=== PATIENT | male | born 1975 | race Caucasian/White ===

== ENCOUNTER 2019-01-08 18:38 | Inpatient (IN) | payer BC ==
[2019-01-08] MEDS ORDERED: Sodium Chloride 0.9% 10 ML Syringe FLUSH PRN (18:44)
[2019-01-08] MEDS: Acetaminophen/HYDROcodone 325-5 MG Tab PO PRN (19:58)
[2019-01-08] MEDS: Sodium Chloride 0.9% 1,000 ML IV SCH (20:37)
[2019-01-08] MEDS: Piperacillin/Tazobactam 4.5 GM in Sodium Chloride 0.9% 100 ML IV SCH (20:38)
[2019-01-08] MEDS ORDERED: FLUOCINOLONE ACETONIDE TOP PRN (21:40)
[2019-01-09] MEDS: Piperacillin/Tazobactam 4.5 GM in Sodium Chloride 0.9% 100 ML IV SCH ×4 (02:01→20:09)
[2019-01-09] MEDS: LORazepam 0.5 MG Tab PO PRN ×2 (02:07→21:39)
[2019-01-09] MEDS: Acetaminophen/HYDROcodone 325-5 MG Tab PO PRN ×3 (02:08→20:07)
[2019-01-09] MEDS: Lisinopril 10 MG Tab PO SCH (09:32)
[2019-01-09] MEDS: Simvastatin 10 MG Tab PO SCH (09:33)
[2019-01-09] MEDS: Apremilast [Otezla] 30 MG PO SCH ×2 (09:47→20:25)
[2019-01-09] MEDS: Acetaminophen 325 MG Tab PO PRN ×3 (10:50→21:39)
--- NOTE | 2019-01-09 11:30 | PN ---
01/09/2019 PATIENT NAME: LEIGH MENDOZA CHIEF COMPLAINT: Abscess to his left axillary area. HISTORY: (See HPI for full details), however, I had seen Leigh. He is a 43- year-old gentleman. I had seen him in the [facility] yesterday when he had come in for an abscess on his left axillary area the past few days. At that time, he stated it was draining, it was tender and red and swollen. He has a history of periodic abscesses even to his abdomen area. He also had a history of approximately two weeks ago of an abscess of his left axillary proximal to his current one that seemed to come to the surface and drained with warm compresses. He has a history of abscesses, which he will put warm compresses on. He also complained of a fever of 103 two days ago with generalized chills, diaphoresis with more erratic blood sugars. He is a type 1 diabetic. He was not evaluated prior to coming to the clinic yesterday. He came in yesterday with significant diaphoresis. He was admitted for IV antibiotics and close followup. LABS: At the [facility], white count 10.9, hemoglobin and hematocrit normal. Mild elevation in absolute segmental neutrophils. Glucose 290. Sodium 134, potassium normal at 4.8. ESR normal at 11. Influenza A, B, and strep was negative. Lactic acid normal. He was tachycardic. Yesterday he was afebrile, however, he had been taking ibuprofen and Tylenol. Dr. Jefferson attempted to drain the abscess, however, received no drainage. Again he was admitted for IV antibiotics. OVERNIGHT CONCERNS: I did order pain medication hydrocodone, the patient took low-dose, tolerated that well. He does have significant anxiety, gave him oral benzodiazepine. This seemed to work well. PHYSICAL EXAMINATION: VITAL SIGNS: Temperature 98.9, heart rate 104, blood pressure 143/87, respiratory rate 20, and O2 sats 98% on room air. LUNGS: Are clear to auscultation. CV: Regular rate and rhythm. PSYCHIATRIC: High anxiety level, however, appears more calm this morning. LEFT AXILLARY: Diffuse, tender, erythematous hard indurated abscess, appears to be draining. Culture will be taken. Not much improvement from yesterday on exam. IMPRESSION AND PLAN: 1. Abscess, left axillary. Started on broad-spectrum Zosyn along with vancomycin. Pharmacy did trough for this. Blood cultures are drawn. 2. Dehydration. Continue with IV hydration and oral. 3. Chronic problems, type 1 diabetes, appears well controlled. Carbohydrate counting with insulin pump. The patient self doses, this will be monitored 3 to 4 times a day. 4. Hyperlipidemia. He is on simvastatin. 5. Hypertension. He is on DAVID inhibition. Blood pressure is slightly high today, however, review of clinical charts, he has been quite stable for this. It could be pain induced. We will monitor for the need to increase. OVERALL PLAN: Continue IV antibiotics. We will see how his abscess will declare itself. Culture today. Monitor blood cultures. Blood sugars are good. We will demarcate the lines with a marker today to assess for receding redness. Hold off on any formal imaging today. /[id number]/MODL
[2019-01-09] MEDS: Sodium Chloride 0.9% 1,000 ML IV SCH (12:30)
[2019-01-09] MEDS: Naloxegol Oxalate 25 MG Tab PO SCH (12:30)
[2019-01-10] MEDS: Piperacillin/Tazobactam 4.5 GM in Sodium Chloride 0.9% 100 ML IV SCH ×2 (01:57→08:20)
[2019-01-10] MEDS: Sodium Chloride 0.9% 1,000 ML IV SCH (03:58)
[2019-01-10] MEDS ORDERED: Ondansetron 4 MG/2 ML SDV IVPUSH PRN (07:44)
[2019-01-10] MEDS: Simvastatin 10 MG Tab PO SCH (08:21)
[2019-01-10] MEDS: Naloxegol Oxalate 25 MG Tab PO SCH (08:21)
[2019-01-10] MEDS: Lisinopril 10 MG Tab PO SCH (08:22)
[2019-01-10] MEDS: Apremilast [Otezla] 30 MG PO SCH ×2 (08:22→20:37)
[2019-01-10] MEDS ORDERED: Amoxicillin/Clavulanate K 500-125 MG Tab PO SCH (14:00)
--- NOTE | 2019-01-10 15:21 | PN ---
01/10/2019 PATIENT NAME: LEIGH MENDOZA CHIEF COMPLAINT: Ongoing abscess to his left axillary area, however, some slight improvement, had some drainage. HISTORY: A 43-year-old gentleman was seen at [facility]. I had seen him for left axillary mass that he had been having over the past few days. He stated at that time it was slightly draining. It was tender, red, swollen. Dr. Jefferson attempted to I and D, however, no drainage at that time. He was admitted for IV antibiotics and ongoing observation and workup as he was also tachycardic, diaphoresis; just had some generalized not feeling well. He is a type 1 diabetic and he had some erratic blood sugars at the time. He does have a history of these abscesses. He puts warm compresses on them and they usually come to the surface and spontaneously resolved and drained and went out. When he came in, he stated he had a fever of 103 two days prior with on and off fever flashes with some generalized chills, diaphoresis. He was admitted for broad- spectrum antibiotic therapy along with bacteriostatic vancomycin and close followup. PHYSICAL EXAMINATION: Blood pressure is slightly elevated 138/91, O2 sats 98% on room air. Afebrile. Temperature 98.6. LAB: White count is slightly elevated at 11.83. Neutrophilia 80%. Vancomycin trough therapeutic at 13.8. Lactic acid on admission was normal at 1.8. ASSESSMENT: Left axillary diffuse tender erythematous with a hard indurated abscess, however, it does appear to be receding from demarcated lines on admission. Drainage, nonpurulent, sanguinous, quite soddened dressing this morning. Hidradenitis suppurativa. Likely etiology due to apocrine gland abscess. Hypertension. Dehydration which is resolved. Type 1 diabetes, appears well controlled. The patient now performs carbohydrate counting with insulin pump, self doses. OVERALL PLAN: Continue monitoring patient today. We will switch to oral antibiotics tonight. He likely could be discharged tomorrow on continuation of oral antibiotics. Consulted with Infectious Disease. She recommends MRSA nasal swab today. /[id number]/MODL
[2019-01-10] MEDS: Acetaminophen/HYDROcodone 325-5 MG Tab PO PRN (16:01)
[2019-01-10] MEDS: Amoxicillin/Clavulanate K 500-125 MG Tab PO SCH (20:10)
[2019-01-11] MEDS: Acetaminophen/HYDROcodone 325-5 MG Tab PO PRN (06:31)
[2019-01-11] MEDS: Naloxegol Oxalate 25 MG Tab PO SCH (09:35)
[2019-01-11] MEDS: Amoxicillin/Clavulanate K 500-125 MG Tab PO SCH (09:35)
--- NOTE | 2019-01-11 10:51 | PCM.DCSUM1 ---
Discharge Summary - Hospital Course Brief History: This is a 43 year old male who presented to the clinic with concerns of an abscess to his left axilla and two days of fevers of 103. He overall had not been feeling well with generalized chills, malaise, and diaphoresis. He is a type 1 diabetic and had noted his blood sugars to be erradic. He has a history of these abscesses in his axilla and abdomen. He will typically be able to apply a warm compress and this will help it open and drain. An attempt was made by Dr. Jefferson to perform an I&D without success. He was admitted to the hospital for IV fluids and antibiotics. - Discharge Data Discharge Date: 01/11/19 Discharge Disposition: Home, Self-Care 01 Condition: Good - Patient Instructions Diet: Diabetic Diet Activity: As Tolerated Driving: May Drive Today Showering/Bathing: May Shower Wound/Incision Care: Keep Operative Site/Wound Site Clean and Dry Notify Provider of: Fever, Increased Pain, Swelling and Redness (increased) - Discharge Plan *PRESCRIPTION DRUG MONITORING PROGRAM REVIEWED*: Not Applicable *COPY OF PRESCRIPTION DRUG MONITORING REPORT IN PATIENT [place]: Not Applicable Prescriptions/Med Rec: Amoxicillin/Clavulanate K [Augmentin 500-125 MG] 1 tab PO Q12H #14 tablet Home Medications: Home Meds Apremilast [Otezla] 30 mg PO BID 01/08/19 [History] Aspirin [Halfprin] 81 mg PO DAILY 01/08/19 [History] Betamethasone Dipropionate [Diprosone 0.05% Crm] 1 applic TOP BID PRN 01/08/19 [ History] Cholecalciferol (Vitamin D3) [Vitamin D3] 1,000 unit PO DAILY 01/08/19 [History] Fluocinolone Acetonide [Synalar] 1 applic TP BID PRN 01/08/19 [History] Insulin Pump Cartridge [T:Slim G4] 1 each SQ ASDIRECTED 01/08/19 [History] Lisinopril [Prinivil] 10 mg PO DAILY 01/08/19 [History] Multivitamin with Minerals [Multiple Vitamin] 1 tab PO DAILY 01/08/19 [History] Simvastatin [Zocor] 10 mg PO DAILY 01/08/19 [History] Acetaminophen [Tylenol] 325 - 650 mg PO Q4H PRN tablet 01/11/19 [Rx] Amoxicillin/Clavulanate K [Augmentin 500-125 MG] 1 tab PO Q12H #14 tablet [Rx] Referrals: Cb Velásquez NP [Primary Care Provider] - (Follow-up with Cb Velásquez NP on 01/15/19 or 01/16/19 in the clinic.) - Discharge Summary/Plan Comment DC Time >30 min.: Yes Discharge Summary/Plan Comment: Date of admission: 01/08/19 Date of discharge: 01/11/19 Admitting diagnosis: Primary: Fever, Cutaneous abscess of left axilla, Dehydration Secondary: Hyperlipidemia, Type 1 DM on insulin pump, HTN, Psoriasis Final diagnosis: Primary: Left axillary abscess secondary to Hidradenitis suppurative, improving; Fever, resolved; Dehydration, resolved. Secondary: Hyperlipidemia, Type 1 DM on insulin pump, HTN, Psoriasis Procedures performed: None Pertinent hospitalization labs: Blood cultures x 2-no growth after 3 days Wound [id number] growth to date Lactic acid 1.8 Hospital Course: The patient's hospital course went as expected. He was started on broad spectrum IV antibiotics of Zosyn and Vancomycin. He was given IV fluids for rehydration. Blood cultures and wound culture were obtained. The patient had daily dressing changes performed with a notable amount of drainage. The patient monitored his blood sugars himself and used his insulin pump. Patient was tachycardic at 90s to low 100s with blood pressures being borderline high. He did note a headache on the day of discharge, which he attributed to not taking his home dose of lisinopril. Patient remained hemodynamically stable. He was afebrile the 24-36 hours prior to discharge. He was switched to oral Augmentin per infectious disease recommendations the night before discharge. No reported issues with this. ID also recommended nasal swab for MRSA which is pending. WBC 10.9 with mild neutrophilia on discharge, this had improved. Patient had not required any narcotic pain medication the day prior to discharge. New medications on discharge: Augmentin 500 mg po BID x 1 week Tylenol 325-650 mg po every 4 hours PRN Changes to home medications on discharge: None. Regular home medications on discharge: Insulin pump Synalar 1 application top BID PRN Multivitamin 1 tab po daily Vitamin D3 2000 units po daily Aspirin 81 mg po daily Otezla 30 mg po BID Betamethasone 0.05% 1 application topical BID PRN Lisinopril 10 mg po daily Simvastatin 10 mg po daily Condition, Treatment, and Final Disposition: The patient was in stable condition at the time of discharge. He will be discharged home with a family member. He will follow-up in the clinic early next week with Cb Velásquez NP. Patient was instructed on wound care and dressing changes. - General Info Date of Service: 01/11/19 - Review of Systems General: Denies: Fever, Chills HEENT: Reports: Headaches Pulmonary: Denies: Shortness of Breath Cardiovascular: Denies: Chest Pain, Palpitations Skin: Reports: Other (pain to left axilla with redness and drainage) Neurological: Reports: Headache. Denies: Dizziness Psychiatric: Reports: No Symptoms - Patient Data Vitals - Most Recent: Last Vital Signs Temp 97.5 F 01/11/19 06:41 Pulse 109 H 01/11/19 06:41 Resp 20 01/11/19 06:41 BP 141/95 H 01/11/19 06:41 Pulse Ox 98 01/11/19 06:41 Weight - Most Recent: 180 lb 4.8 oz I&O - Last 24 hours: Intake & Output 01/10/19 01/11/19 01/11/19 22:59 06:59 14:59 Intake Total 400 300 Balance 400 300 Lab Results - Last 24 hrs: Laboratory Results - last 24 hr 01/11/19 Range/Units 09:00 WBC 10.99 H (5.00-10.00) 10^3/uL RBC 4.86 (4.50-6.00) 10^6/uL Hgb 15.5 (13.0-17.0) g/dL Hct 44.0 (40.0-52.0) % MCV 90.5 (82.0-92.0) fL MCH 31.9 H (27.0-31.0) pg MCHC 35.2 (32.0-36.0) g/dL RDW 11.2 L (11.5-14.5) % Plt Count 231 (150-400) 10^3/uL MPV 9.7 (7.4-10.4) fL Immature Gran % (Auto) 0.2 (0.0-5.0) % Neut % (Auto) 83.7 H (50.0-70.0) % Lymph % (Auto) 8.3 L (20.0-40.0) % [place] % (Auto) 6.3 (2.0-8.0) % Eos % (Auto) 1.0 (1.0-3.0) % Baso % (Auto) 0.5 (0.0-1.0) % Immature Gran # (Auto) 0.02 (0.00-0.50) 10^3/uL Neut # (Auto) 9.21 H (2.50-7.00) 10^3/uL Lymph # (Auto) 0.91 L (1.00-4.00) 10^3/uL [place] # (Auto) 0.69 (0.10-0.80) 10^3/uL Eos # (Auto) 0.11 (0.10-0.30) 10^3/uL Baso # (Auto) 0.05 (0.00-0.10) 10^3/uL CARLOS Results - Last 24 hrs: Microbiology 01/08/19 19:15 Aerobic Blood Culture - Preliminary Blood NO GROWTH AFTER 2 DAYS Anaerobic Blood Culture - Preliminary NO GROWTH AFTER 2 DAYS Med Orders - Current: Current Medications Acetaminophen (Tylenol) 325 - 650 mg PO Q4H PRN PRN Reason: Temperature Last Admin: 01/09/19 21:39 Dose: 650 mg Hydrocodone Bitart/Acetaminophen ([place] 325-5 Mg) 1 tab PO Q4H PRN PRN Reason: Pain Last Admin: 01/11/19 06:31 Dose: 1 tab Amoxicillin/Clavulanate Potassium (Augmentin 500 Mg\125 Mg) 1 tab PO Q12H [facility] Last Admin: 01/11/19 09:35 Dose: 1 tab Sodium Chloride (Normal Saline) 1,000 mls @ 100 mls/hr IV ASDIRECTED [facility] Last Admin: 01/10/19 03:58 Dose: 100 mls/hr Lisinopril (Prinivil) 10 mg PO BEDTIME [facility] Lorazepam (Ativan) 0.5 mg PO BEDTIME PRN PRN Reason: Anxiety Last Admin: 01/09/19 21:39 Dose: 0.5 mg Naloxegol (Movantik) 25 mg PO DAILY [facility] Last Admin: 01/11/19 09:35 Dose: 25 mg Patient Own Insulin (Pump) 1 each SQ ASDIRECTED [facility] Ondansetron HCl (Zofran) 4 mg IVPUSH Q6H PRN PRN Reason: Nausea/Vomiting Last Admin: 01/10/19 08:17 Dose: 4 mg Apremilast [Otezla] (30 Mg) 1 each PO BID [facility] Last Admin: 01/10/19 20:37 Dose: Not Given Fluocinolone (Acetonide [Synalar]) 1 each TOP BID PRN PRN Reason: Itching Simvastatin (Zocor) 10 mg PO BEDTIME [facility] Sodium Chloride (Saline Flush) 10 ml FLUSH Q8HR PRN PRN Reason: keep vein open Discontinued Medications Amoxicillin/Clavulanate Potassium (Augmentin 500 Mg\125 Mg) 1 tab PO Q12HR [facility] Stop: 01/20/19 14:01 Piperacillin Sod/Tazobactam (Sod 4.5 gm/ Sodium Chloride) 100 mls @ 200 mls/hr IV Q6H [facility] Last Admin: 01/10/19 08:20 Dose: 200 mls/hr Vancomycin HCl 2 gm/ Sodium (Chloride) 250 mls @ 100 mls/hr IV ONETIME ONE Stop: 01/08/19 22:29 Last Admin: 01/08/19 21:19 Dose: 100 mls/hr Vancomycin HCl 1 gm/ Sodium (Chloride) 250 mls @ 166.667 mls/hr IV Q8H [facility] Last Admin: 01/10/19 13:30 Dose: 166.667 mls/hr Lisinopril (Prinivil) 10 mg PO DAILY [facility] Last Admin: 01/10/19 08:22 Dose: 10 mg Simvastatin (Zocor) 10 mg PO DAILY [facility] Last Admin: 01/10/19 08:21 Dose: 10 mg Vancomycin HCl (Pharmacy To Dose - Vancomycin) 1 dose .XX ASDIRECTED [facility] - Exam Quality Assessment: Denies: Supplemental Oxygen General: Reports: Alert, Oriented, Cooperative, No Acute Distress Lungs: Reports: Clear to Auscultation, Normal Respiratory Effort Cardiovascular: Reports: Regular Rhythm, No Murmurs, Tachycardia Skin: Reports: Warm, Dry Wound/Incisions: Reports: Other (left axilla: approximate small orange in size hard, tender, erythematous mass with 3 pin holes oozing serous drainage, warm to touch, erythema mildly reduced from demarcated line on lower end) Psy/Mental Status: Reports: Alert, Normal Affect, Normal Mood
[2019-01-11] MEDS ORDERED: Lisinopril 10 MG Tab PO SCH (21:00)
[2019-01-11] MEDS ORDERED: Simvastatin 10 MG Tab PO SCH (21:00)
== END 2019-01-11 13:40 | disposition home or self-care (01) | DRG 383 ==
LOC: KA.MS 18:38
PROVIDERS: ADMIT Nurse Practitioner Family; ATTEND Family Medicine
DX: L02.412 Cutaneous abscess of left axilla (principal); E10.8 Type 1 diabetes mellitus with unspecified complications; L73.2 Hidradenitis suppurativa; E86.0 Dehydration; I10 Essential (primary) hypertension; L40.9 Psoriasis, unspecified; E78.5 Hyperlipidemia, unspecified; Z79.82 Long term (current) use of aspirin; Z79.4 Long term (current) use of insulin; Z79.899 Other long term (current) drug therapy
CPT/HCPCS: 36415; 80202; 82550; 83605; 85025; 87040; 87070; 87081; 87205; A9270-GY; J2405; J2543; J3370; J7030; J7050